=== PATIENT | female | born 1975 | race African-American/Black ===

== ENCOUNTER 2016-11-29 10:32 | Emergency (ER) | payer MEDICAID ==
[~2016-11-29] VITALS: Ht 154.9 cm; Wt 74.8 kg
[~2016-11-29 10:32] MED LIST: CEPHALEXIN500 MG ORAL; CIPRO500 MG PO; CYCLOBENZAPRINE10 MG ORAL; IBUPROFEN600 MG ORAL; NKM; NORCO 5-325 TA1 EACH ORAL; NORCO 5/3251 TAB ORAL; PHENAZOPYRIDIN200 MG ORAL
[2016-11-29] MEDS ORDERED: Tylenol #3 tab (300mg/30mg) PO ONE (11:15)
[2016-11-29] MEDS ORDERED: IBUPROFEN600 MG ORAL (11:44)
[2016-11-29] MEDS ORDERED: ACETAMINOPHEN-1 EAC1 ORAL (11:44)
--- NOTE | 2016-11-29 12:07 | Diagnostic Imaging Report ---
Indication: PAIN Technique: 3 views of the right ankle Comparison: none Findings: No acute fractures. No dislocations. Joint spaces are preserved. Impression: Negative
[2016-11-29 12:25] VITALS: BP 158/100
--- NOTE | 2016-11-29 16:17 | Diagnostic Imaging Report ---
Indication: PAIN Technique: 3 views right foot Comparison: none Findings: There is evidence of prior bunionectomy. No acute fractures. No dislocations. The joint spaces are preserved. Impression: Negative
--- NOTE | 2016-11-30 14:25 | Emergency Room Report ---
History of Present Illness General Chief Complaint: Lower Extremity Injury Source: Patient Present Illness HPI 40-year-old female presents to ED for evaluation. Patient states he had a trip and fall 2 days ago and rolled her right ankle. Patient has pain and swelling to right ankle. 10 out of 10, throbbing, nonradiating. Notes pain but is able to bear weight. Denies any other injuries. No other aggravating relieving factors. Denies any other associated symptom Allergies: Coded Allergies: NITROFURANTOIN (Verified Allergy, Mild, Rash, 10/08/12) NITROFURANTOIN MACROCRYSTAL (Verified Allergy, Mild, Rash, 10/08/12) Patient History Past Medical History: none Past Surgical History: none Pertinent Family History: none Social History: Denies: alcohol use, drug use, smoking Last Menstrual Period: 7- Now: No Immunizations: UTD Reviewed Nursing Documentation: PMH: Agreed, PSxH: Agreed Nursing Documentation-PMH Past Medical History: No History, Except For Review of Systems All Other Systems: negative except mentioned in HPI Physical Exam Vital Signs Date Time Temp Pulse Resp B/P Pulse Ox O2 Delivery O2 Flow Rate FiO2 11/29/16 10:37 97.9 63 18 164/120 98 Room Air Sp02 EP Interpretation: reviewed, normal General Appearance: no apparent distress, alert, GCS 15, non-toxic Head: normocephalic Eyes: bilateral eye PERRL, bilateral eye normal inspection ENT: normal ENT inspection Neck: normal inspection Respiratory: normal inspection Cardiovascular #1: normal inspection Gastrointestinal: normal inspection Rectal: heme negative stool Genitourinary: no CVA tenderness Musculoskeletal: swelling - R ankle Neurologic: alert, oriented x3, responsive, motor strength/tone normal, sensory intact, speech normal Psychiatric: normal inspection Skin: normal inspection Lymphatic: normal inspection Procedures Splinting Splinting : Consent: Verbal Pre-Made Type: ELIZABETH wrap - R ankle Pre-Proc Neuro Vasc Exam: normal Post-Proc Neuro Vasc Exam: normal Patient Tolerated: Well Complications: None Medical Decision Making Diagnostic Impression: Primary Impression: Ankle sprain Qualified Codes: S93.401A - Sprain of unspecified ligament of right ankle, initial encounter ER Course Hospital Course 40-year-old F presents to ED complaining of R foot pain s/p trip and fall Differential diagnoses include: Fracture, dislocation, sprain, contusion Clinical course Patient placed on stretcher. After initial history and physical, I ordered pain medications and Xrays of R foot/ankle Xrays prelim read shows no acute fracture/dislocation. placed in elizabeth wrap, given crutches Diagnosis - ankle sprain Stable and discharged to home with prescription for Motrin. apply ice, keep elevated. weight bear as tolerated. Followup with PMD. Return to ED if symptoms recur or worsen Other X-Ray Diagnostic Results Other X-Ray Diagnostic Results #1: X-Ray ordered: R ankle # of Views/Limited Vs Complete: 3 View Indication: Pain EP Interpretation: Yes Interpretation: no dislocation, no soft tissue swelling, no fractures Impression: No acute disease Interpreting ER Provider: Electronically signed by Cuong Manrique MD Other X-Ray Diagnostic Results #2: X-Ray ordered: R foot # of Views/Limited Vs Complete: 3 View Indication: Pain EP Interpretation: Yes Interpretation: no dislocation, no soft tissue swelling, no fractures Impression: No acute disease Interpreting ER Provider: Electronically signed by Cuong Manrique MD Last Vital Signs Date Time Temp Pulse Resp B/P Pulse Ox O2 Delivery O2 Flow Rate FiO2 11/29/16 12:25 97.9 89 18 158/100 98 Room Air Status: improved Disposition: HOME, SELF-CARE Condition: Stable Scripts Acetaminophen With Codeine (T#3) (TYLENOL #3 TAB*) Y Tab 1 TAB ORAL Q8H Y for For Pain, #20 TAB Prov: CUONG MANRIQUE M.D. 11/29/16 Ibuprofen* (MOTRIN*) 600 Mg Tablet 600 MG ORAL Q8H Y for For Pain, #30 TAB 0 Refills Prov: CUONG MANRIQUE M.D. 11/29/16 Patient Instructions: Ankle Sprain CUNOG MANRIQUE M.D. Nov 30, 2016 14:25
== END 2016-11-29 11:15 | disposition home or self-care (01) ==
LOC: EMR 11:06
DX: S93.401A Sprain of unspecified ligament of right ankle, initial encounter (principal); W01.0XXA Fall on same level from slipping, tripping and stumbling without subsequent striking against object, initial encounter; Y92.89 Other specified places as the place of occurrence of the external cause
CPT/HCPCS: 29540; 99284

== ENCOUNTER 2017-08-09 16:57 | Emergency (ER) | payer MEDICAID ==
[~2017-08-09] VITALS: Ht 154.9 cm; Wt 75.7 kg
[~2017-08-09 16:57] MED LIST changes: +ACETAMINOPHEN-1 EAC1 ORAL
[2017-08-09 17:13] VITALS: BP 108/67
--- NOTE | 2017-08-09 17:26 | Emergency Room Report ---
History of Present Illness General Chief Complaint: Pain Source: Patient Present Illness HPI 41-year-old female presents to the emergency department complaining of 10 / 10 in severity pain radiating down from the left side of the neck shoulder and anterior chest radiating to the left hand with associated intermittent tingling sensations. Patient denies trauma or fall. Patient reports that the pain woke her up yesterday and she also noted some neck stiffness. Patient denies past medical history other than anemia. Patient reports that her mother does have "some type of heart rhythm." Patient states she's taken Motrin at home with no relief. She and states she also tried warm compresses and massage which also did not provide relief. Patient reports pain is exacerbated upon taking a deep breath, palpation and movements of the left arm. She denies midline neck pain, or episodes of similar symptoms in the past. She denies cough, lower extremity edema, skin color changes to the affected extremity, recent travel. Denies loss of sensation or gross motor movements of the extremities, incontinence of bowel or bladder. Denies Palpitations, LOC, AMS, dizziness, Changes in Vision, Sensation, paresthesias, or a sudden severe headache. Allergies: Coded Allergies: NITROFURANTOIN (Verified Allergy, Mild, Rash, 10/08/12) NITROFURANTOIN MACROCRYSTAL (Verified Allergy, Mild, Rash, 10/08/12) Patient History Past Medical History: see triage record Past Surgical History: none Pertinent Family History: none Last Menstrual Period: 08/06/17 Now: No Reviewed Nursing Documentation: PMH: Agreed; PSxH: Agreed Review of Systems All Other Systems: negative except mentioned in HPI Physical Exam Vital Signs Date Time Temp Pulse Resp B/P (MAP) Pulse Ox O2 Delivery O2 Flow Rate FiO2 08/09/17 17:08 98.2 64 17 108/67 96 Room Air 98.2 Sp02 EP Interpretation: reviewed, normal General Appearance: alert, GCS 15, non-toxic, moderate distress Head: normocephalic, atraumatic ENT: hearing grossly normal, normal voice Neck: full range of motion, no bony tend, tender lateral - left sided, other - no midline ttp. Respiratory: lungs clear, normal breath sounds, no respiratory distress, no accessory muscle use, no wheezing, speaking full sentences Cardiovascular #1: regular rate, rhythm, no edema, normal capillary refill, other - ascultated possible irregular rhythm. Cardiovascular #2: 2+ radial (R), 2+ radial (L) Gastrointestinal: non tender Musculoskeletal: back normal, gait/station normal, normal range of motion - with pain, tender - TTP to the left lateral neck, clavicular area, anterior upper left chest, shoulder, left sided posteiror thoracic musculature, and left biceps and forearm. 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 Neurologic: alert, oriented x3, responsive, motor strength/tone normal, sensory intact, speech normal, grossly normal Psychiatric: judgement/insight normal Skin: normal color, no rash, warm/dry, well hydrated Medical Decision Making PA Attestation Dr. Hart is my supervising Physician whom patient management has been discussed with. Diagnostic Impression: Primary Impression: Muscle spasm Additional Impression: Muscle spasm of left shoulder ER Course 41-year-old female presents to the emergency department complaining of 10 / 10 in severity pain radiating down from the left side of the neck shoulder and anterior chest radiating to the left hand with associated intermittent tingling sensations. Patient denies trauma or fall. Patient reports that the pain woke her up yesterday and she also noted some neck stiffness. Patient denies past medical history other than anemia. Patient reports that her mother does have "some type of heart rhythm." Patient states she's taken Motrin at home with no relief. She and states she also tried warm compresses and massage which also did not provide relief. Patient reports pain is exacerbated upon taking a deep breath, palpation and movements of the left arm. She denies midline neck pain, or episodes of similar symptoms in the past. She denies cough, lower extremity edema, skin color changes to the affected extremity, recent travel. Denies loss of sensation or gross motor movements of the extremities, incontinence of bowel or bladder. Denies Palpitations, LOC, AMS, dizziness, Changes in Vision, Sensation, paresthesias, or a sudden severe headache. Ddx considered but are not limited to Fracture, dislocation, contusion, Sprain/ Strain/Spasm, aortic dissection, upper extremity DVT, impingement syndrome just to name a few. Vital signs: are WNL, pt. is afebrile H&PE are most consistent with musculoskeletal injury will perform imaging to r/ o fractures/dislocations. ORDERS: - Bilateral UE BP Measurements for comparison.: Left 126/80, 122/80 - C-Spine: Some cervical straightening no obvious fractures or dislocation. -CXR: no atelectasis, infiltrates or abnormal heart size. suspicious left upper lobe markings , sent to [facility] for Radiologist evaluation. -[id number] NSR ED INTERVENTIONS: - Toradol - [place] PO -- Left arm Sling applied by land survey technician. Pt. remains neurovascularly intact. d/w pt. conservative treatment with Muscle relaxers, anti-inflammatories and rest. Pt instructed to follow up with a primary care provider in 3-5 days. pt given a list of primary care clinics for follow up. d/w pt. to return to the ED with worsening or new symptoms. DISCHARGE: At this time pt. is stable for d/c to home. Will provide printed patient care instructions, and any necessary prescriptions. Care plan and follow up instructions have been discussed with the patient prior to discharge. EKG Diagnostic Results EP Interpretation: Dr. Hart Rate: normal - 67 BPM Rhythm: NSR ST Segments: no acute changes ASA given to the pt in ED: No PA Scribe Text This Interpretation was scribed by CHRYSTAL aVng. Chest X-Ray Diagnostic Results Chest X-Ray Diagnostic Results : Chest X-Ray Ordered: Yes # of Views/Limited/Complete: 1 View Indication: Chest Pain EP Interpretation: Yes PA Xray: Interpretation reviewed, by supervising MD, and agrees with findings. Interpretation: no consolidation, no effusion, no pneumothorax, no acute cardiopulmonary disease, other - suspicious left upper lobe markings , sent to [facility] for Radiologist evaluation Impression: Other - suspicious left upper lobe markings , sent to [facility] for Radiologist evaluation Electronically Signed by: Candie Vang PA-C Other X-Ray Diagnostic Results Other X-Ray Diagnostic Results : X-Ray ordered: C-Spine # of Views/Limited Vs Complete: 3 View Indication: Pain EP Interpretation: Yes PA Xray: Interpretation reviewed, by supervising MD, and agrees with findings. Interpretation: no dislocation, no soft tissue swelling, no fractures Impression: Other - abnormal: mild cervical straightening. Electronically Signed by: Candie Vang PA-C Last Vital Signs Date Time Temp Pulse Resp B/P (MAP) Pulse Ox O2 Delivery O2 Flow Rate FiO2 08/09/17 17:13 98.2 17 108/67 96 Room Air 98.2 08/09/17 17:08 64 Disposition: HOME, SELF-CARE Condition: Stable Scripts Methocarbamol* (ROBAXIN*) 500 Mg Tablet 500 MG PO TID, #42 TAB 0 Refills Prov: Candie Vang 08/09/17 Ibuprofen* (MOTRIN*) 600 Mg Tablet 600 MG ORAL THREE TIMES A DAY, #20 TAB 0 Refills Prov: Candie Vang 08/09/17 Patient Instructions: Muscle Cramps and Spasms, [id number], Muscle Strain, [id number], Shoulder Pain, [id number] Additional Instructions: Take medications as directed. Follow up with a Primary Care Provider in 3-5 days, even if your symptoms have resolved. --Please review list of primary care clinics, if you do not already have a primary care provider Return sooner to ED if new symptoms occur, or current symptoms become worse. Do not drink alcohol, drive, or operate heavy machinery while taking Robaxin as this may cause drowsiness. - Please note that this Emergency Department Report was dictated using [employer]-eeest[employer] preliminary technology software, occasionally this can lead to erroneous entry secondary to interpretation by the dictation equipment. Candie Vang Aug 09, 2017 17:26
[2017-08-09] MEDS ORDERED: Norco 5mg/325mg tab ORAL ONE (17:30)
[2017-08-09 18:17] VITALS: BP_SYST 116; BP_SYST 117; BP_DIAS 69; BP_DIAS 79
[2017-08-09] MEDS ORDERED: Methocarbamol 500mg tab ORAL ONE (18:45)
[2017-08-09] MEDS ORDERED: Methocarbamol 500mg tab ORAL SCH (18:45)
[2017-08-09] MEDS ORDERED: IBUPROFEN600 MG ORAL (18:55)
[2017-08-09] MEDS ORDERED: ROBAXIN500 MG PO (18:55)
[2017-08-09] MEDS ORDERED: Ketorolac 60mg Inj IM ONE (19:00)
[2017-08-09 19:07] VITALS: BP 122/83
--- NOTE | 2017-08-10 10:03 | Diagnostic Imaging Report ---
Indication: Chest pain Technique: One view of the chest Comparison: none Findings: Lungs and pleural spaces are clear. Heart size is normal Impression: No acute process This agrees with the preliminary interpretation provided overnight by [facility] teleradiology service.
--- NOTE | 2017-08-10 10:04 | Diagnostic Imaging Report ---
Indication: Neck pain Technique: 3 views of the cervical spine Comparison: none Findings: There is no prevertebral soft tissue swelling. Bony alignment is normal. Vertebral body heights are preserved. There is degenerative disc narrowing at multiple levels. No acute fractures. No dislocations. Impression: No acute bony trauma
--- NOTE | 2017-08-11 21:25 | Cardiology Report ---
APPROVED REPORT EKG Measurement Heart [id number] Normal sinus rhythm Normal ECG
== END 2017-08-09 19:12 | disposition home or self-care (01) ==
LOC: EMR 17:29
DX: M62.838 Other muscle spasm (principal); M54.2 Cervicalgia; M25.512 Pain in left shoulder; Z88.8 Allergy status to other drugs, medicaments and biological substances
CPT/HCPCS: 71045; 72040; 93005; 96372; 99284

== ENCOUNTER 2017-12-02 17:50 | Emergency (ER) | payer MEDICAID ==
[~2017-12-02] VITALS: Ht 154.9 cm; Wt 77.1 kg
[~2017-12-02 17:50] MED LIST changes: +ROBAXIN500 MG PO
[2017-12-02 18:04] VITALS: BP 129/86
[2017-12-02 18:50] LABS: HEMATOCRIT 40.9 % (37.0-47.0); HEMOGLOBIN 13.4 G/DL (12.0-16.0); MEAN CORPUSCULAR VOLUME 94 FL (80-99); PLATELET COUNT 295 K/UL (150-450); RED BLOOD COUNT 4.37 M/UL (4.20-5.40); RED CELL DISTRIBUTION WIDTH 11.5 % (11.6-14.8); WHITE BLOOD COUNT 5.9 K/UL (4.8-10.8)
[2017-12-02 18:52] LABS: APPEARANCE,URINE CLEAR; BILIRUBIN, URINE 1+ (NEGATIVE); GLUCOSE, URINE (UA) NEGATIVE (NEGATIVE); KETONES,URINE 1+ (NEGATIVE); LEUKOCYTE ESTERASE ,URINE 1+ (NEGATIVE); NITRITE,URINE POSITIVE (NEGATIVE); PH,URINE 5 (4.5-8.0); PROTEIN,URINE 3+ (NEGATIVE); UROBILINOGEN,URINE 1 MG/DL (NORMAL)
[2017-12-02 18:55] LABS: COLOR,URINE YELLOW
[2017-12-02 19:03] LABS: ALANINE AMINOTRANSFERASE 19 U/L (12-78); ALBUMIN 3.6 G/DL (3.4-5.0); ALBUMIN/GLOBULIN RATIO 0.7 (1.0-2.7); ALKALINE PHOSPHATASE 59 U/L (46-116); ANION GAP 13 mmol/L (5-15); ASPARTATE AMINO TRANSFERASE 23 U/L (15-37); BILIRUBIN,TOTAL 0.3 MG/DL (0.2-1.0); BLOOD UREA NITROGEN 9 mg/dL (7-18); CALCIUM 9.1 MG/DL (8.5-10.1); CARBON DIOXIDE 23 MMOL/L (21-32); CHLORIDE 104 MMOL/L (98-107); CREATININE 1.2 MG/DL (0.55-1.30); SODIUM 140 MMOL/L (136-145)
[2017-12-02 19:05] LABS: POTASSIUM 2.6 MMOL/L (3.5-5.1)
[2017-12-02] MEDS ORDERED: cefTRIAXone 1 GM in NS 55 ML IVPB ONE (19:15)
[2017-12-02] MEDS ORDERED: ZOFRAN4 MG ORAL (19:28)
[2017-12-02] MEDS ORDERED: CIPROFLOXACIN500 M2 ORAL (19:28)
--- NOTE | 2017-12-02 19:38 | Emergency Room Report ---
History of Present Illness General Chief Complaint: Nausea, Vomiting, and Diarrhea Source: Patient Present Illness HPI Patient presents emergency department today complaining of 3-4 days of nausea vomiting diarrhea and abdominal discomfort. Patient states her diarrhea is improving but she denied burrito drink anything. She states that she feels very nauseous finally came here further evaluation. She denies any definite dysuria or vaginal discharge denies any rectal bleeding symptoms noted to be moderate to severe.No other modifying factors. No other associated signs and symptoms. No other complaints were noted. Allergies: Coded Allergies: NITROFURANTOIN (Verified Allergy, Mild, Rash, 10/08/12) NITROFURANTOIN MACROCRYSTAL (Verified Allergy, Mild, Rash, 10/08/12) Patient History Past Medical History: none Past Surgical History: none Pertinent Family History: none Social History: Denies: smoking, alcohol use, drug use Last Menstrual Period: 11/28/17 Reviewed Nursing Documentation: PMH: Agreed; PSxH: Agreed Nursing Documentation-PMH Past Medical History: No History, Except For Review of Systems All Other Systems: negative except mentioned in HPI Physical Exam Vital Signs Date Time Temp Pulse Resp B/P (MAP) Pulse Ox O2 Delivery O2 Flow Rate FiO2 12/02/17 17:53 98.4 80 18 129/86 99 Room Air 98.4 Sp02 EP Interpretation: reviewed, normal General Appearance: normal inspection, well appearing, no apparent distress, alert Head: atraumatic Eyes: bilateral eye normal inspection ENT: normal ENT inspection, hearing grossly normal, normal voice Neck: normal inspection, full range of motion, supple, no bony tend Respiratory: normal inspection, lungs clear, normal breath sounds, no respiratory distress, no retraction, no wheezing Cardiovascular #1: regular rate, rhythm, no edema Gastrointestinal: normal inspection, normal bowel sounds, non tender, soft, no guarding, no hernia Genitourinary: no CVA tenderness Musculoskeletal: normal inspection, back normal, normal range of motion Neurologic: normal inspection, alert, responsive, speech normal Psychiatric: normal inspection, judgement/insight normal, mood/affect normal Skin: normal inspection, normal color, no rash Medical Decision Making Diagnostic Impression: Primary Impression: Hypokalemia Additional Impressions: Nausea, vomiting, and diarrhea UTI (urinary tract infection) ER Course Patient presents emergency department today generalized weakness nausea vomiting diarrhea. Differential diagnoses include a Lexxel abnormality, gastritis, UTI just name a few.Given the severity of the patient's presentation I felt this is a highly complex patient. This patient required extensive workup. Patient laboratory workup was not impressive except for evidence of hypokalemia patient was given potassium. Patient was also given fluids fracture aeration. Patient's urine testing showed evidence UTI patient was given one dose of Rocephin and started on a prescription for Cipro. Patient was also given prescription for Zofran. Patient states that she feels much better after treatment. Recommend close outpatient follow-up. I feel the patient's hypokalemia was likely secondary to the diarrhea and vomiting.Patient is advised to follow up with primary doctor in 2-3 days and return the emergency room for any worsening symptoms and as needed. Labs Test 12/02/17 18:20 White Blood Count 5.9 K/UL (4.8-10.8) Red Blood Count 4.37 M/UL (4.20-5.40) Hemoglobin 13.4 G/DL (12.0-16.0) Hematocrit 40.9 % (37.0-47.0) Mean Corpuscular Volume 94 FL (80-99) Mean Corpuscular Hemoglobin 30.7 PG (27.0-31.0) Mean Corpuscular Hemoglobin Concent 32.7 G/DL (32.0-36.0) Red Cell Distribution Width 11.5 % (11.6-14.8) Platelet Count 295 K/UL (150-450) Mean Platelet Volume 7.2 FL (6.5-10.1) Neutrophils (%) (Auto) % (45.0-75.0) Lymphocytes (%) (Auto) % (20.0-45.0) Monocytes (%) (Auto) % (1.0-10.0) Eosinophils (%) (Auto) % (0.0-3.0) Basophils (%) (Auto) % (0.0-2.0) Urine Color Yellow Urine Appearance Clear Urine pH 5 (4.5-8.0) Urine Specific [place] 1.025 (1.005-1.035) Urine Protein 3+ (NEGATIVE) Urine Glucose (UA) Negative (NEGATIVE) Urine Ketones 1+ (NEGATIVE) Urine Occult Blood 5+ (NEGATIVE) Urine Nitrite Positive (NEGATIVE) Urine Bilirubin 1+ (NEGATIVE) Urine Ictotest Negative (NEGATIVE) Urine Urobilinogen 1 MG/DL (NORMAL) Urine Leukocyte Esterase 1+ (NEGATIVE) Urine RBC 10-15 /HPF (0 - 2) Urine WBC 5-10 /HPF (0 - 2) Urine Squamous Epithelial Cells Few /LPF (NONE/OCC) Urine Calcium Oxalate Crystals Few /LPF (NONE) Urine Amorphous Sediment Few /LPF (NONE) Urine Bacteria Moderate /HPF (NONE) Urine Fine Granular Casts 2-4 /LPF (NONE) Urine HCG, Qualitative Negative (NEGATIVE) Sodium Level 140 MMOL/L (136-145) Potassium Level 2.6 MMOL/L (3.5-5.1) Chloride Level 104 MMOL/L (98-107) Carbon Dioxide Level 23 MMOL/L (21-32) Anion Gap 13 mmol/L (5-15) Blood Urea Nitrogen 9 mg/dL (7-18) Creatinine 1.2 MG/DL (0.55-1.30) Estimat Glomerular Filtration Rate 59.4 mL/min (>60) Glucose Level 105 MG/DL (74-106) Calcium Level 9.1 MG/DL (8.5-10.1) Total Bilirubin 0.3 MG/DL (0.2-1.0) Aspartate Amino Transf (AST/SGOT) 23 U/L (15-37) Alanine Aminotransferase (ALT/SGPT) 19 U/L (12-78) Alkaline Phosphatase 59 U/L (46-116) Total Protein 8.5 G/DL (6.4-8.2) Albumin 3.6 G/DL (3.4-5.0) Globulin 4.9 g/dL Albumin/Globulin Ratio 0.7 (1.0-2.7) Lipase 86 U/L (73-393) Last Vital Signs Date Time Temp Pulse Resp B/P (MAP) Pulse Ox O2 Delivery O2 Flow Rate FiO2 12/02/17 18:04 98.4 74 18 129/86 99 Room Air 98.4 Status: improved Disposition: HOME, SELF-CARE Condition: Stable Scripts Ondansetron (Zofran) 4 Mg Tablet 4 MG ORAL Q6H PRN for Nausea & Vomiting, #6 TAB 0 Refills Prov: Tr South MD 12/02/17 Ciprofloxacin Hcl* (CIPROFLOXACIN HCL*) 500 Mg Tablet 500 MG ORAL Q12H, #14 TAB 0 Refills Prov: Tr South MD 12/02/17 Patient Instructions: Hypokalemia, Viral Gastroenteritis, Adult, [id number], Urinary Tract Infection Tr South MD Dec 02, 2017 19:38
[2017-12-02 20:20] VITALS: BP 129/86
== END 2017-12-02 20:20 | disposition home or self-care (01) ==
LOC: EMR 18:25
DX: E87.6 Hypokalemia (principal); N39.0 Urinary tract infection, site not specified; R11.2 Nausea with vomiting, unspecified; R19.7 Diarrhea, unspecified
CPT/HCPCS: 36415; 80053; 81003; 81025; 83690; 85007; 85025; 87086; 87181; 99284; J0696; J2405; J8499

== ENCOUNTER 2020-02-27 19:47 | Emergency (ER) | payer MEDICAID ==
[~2020-02-27] VITALS: Ht 154.9 cm; Wt 77.1 kg
[~2020-02-27 19:47] MED LIST changes: +CIPROFLOXACIN500 M2 ORAL; +LIDODERM700 M1 TOPIC; +ZOFRAN4 MG ORAL
--- NOTE | 2020-02-27 19:58 | NUR ---
ED Nurse Note: pt presents to ED c/o R sided sore throat and R ear ache x4 days. pt states that she has been taking ibuprofen at home but the pain returns after a couple hours. pt reports going to the dentist yesterday to be evaluated for a dental source of pain but that "they didn't find anything wrong" there. pt denies fevers or chills at this time
[2020-02-27 19:59] VITALS: BP 121/73
--- NOTE | 2020-02-27 20:10 | Emergency Room Report ---
History of Present Illness General Chief Complaint: Sore Throat Present Illness HPI 44-year-old female with no no signal past medical history here complaining of 2 days of right ear pain rating it 7 out of 10 with now radiating to right side of throat. Patient reports that she thought it was coming from her throat and went to the dentist earlier today and was told that her teeth are fine. Denies any fever and chills, headache and dizziness. Denies any vertigo, tinnitus, hearing loss. Denies any pus drainage from the ear. Obvious anterior cervical lymp hadenopathy noted. Patient denies any neck stiffness, fever and chills, photophobia, headache. Has not taken medication for symptom relief. Denies any diarrhea, loss of taste and smell. Denies Allergies: Coded Allergies: NITROFURANTOIN (Verified Allergy, Mild, Rash, 10/08/12) NITROFURANTOIN MACROCRYSTAL (Verified Allergy, Mild, Rash, 10/08/12) COVID-19 Screening Contact w/high risk pt: No Experienced COVID-19 symptoms?: No COVID-19 Testing performed NEWSPAPER ILLUSTRATOR: No Patient History Past Medical History: see triage record Past Surgical History: none Pertinent Family History: none Now: No Immunizations: UTD Reviewed Nursing Documentation: PMH: Agreed; PSxH: Agreed Review of Systems All Other Systems: negative except mentioned in HPI Physical Exam Vital Signs Date Time Temp Pulse Resp B/P (MAP) Pulse Ox O2 Delivery O2 Flow Rate FiO2 02/27/20 19:52 98.2 76 18 121/73 (89) 95 Room Air Sp02 EP Interpretation: reviewed, normal General Appearance: no apparent distress, alert, GCS 15, non-toxic Head: normocephalic, atraumatic Eyes: bilateral eye normal inspection, bilateral eye PERRL ENT: pharyngeal erythema, other - Erythema right ear canal Neck: full range of motion, no meningismus, no bony tend, other - Right-sided lymphadenopathy Respiratory: chest non-tender, lungs clear, normal breath sounds, speaking full sentences Cardiovascular #1: regular rate, rhythm, no edema, no murmur Cardiovascular #2: 2+ carotid (R), 2+ carotid (L), 2+ radial (R), 2+ radial (L), 2+ dorsalis pedis (R), 2+ dorsalis pedis (L) Gastrointestinal: soft Rectal: deferred Musculoskeletal: back normal, other - No mastoid tenderness noted. No meningismus noted Neurologic: alert, motor strength/tone normal, oriented x3, sensory intact, responsive, speech normal Psychiatric: judgement/insight normal, memory normal, mood/affect normal, no suicidal/homicidal ideation Skin: no rash Lymphatic: adenopathy - Right-sided anterior cervical lymphadenopathy Medical Decision Making PA Attestation All diagnoses and treatment plans were reviewed and discussed with my supervising physician Dr. Nettles Diagnostic Impression: Primary Impression: Otitis media Additional Impression: Lymphedema ER Course 44-year-old female with no no signal past medical history here complaining of 2 days of right ear pain rating it 7 out of 10 with now radiating to right side of throat. Patient reports that she thought it was coming from her throat and went to the dentist earlier today and was told that her teeth are fine. Denies any fever and chills, headache and dizziness. Denies any vertigo, tinnitus, hearing loss. Denies any pus drainage from the ear. Obvious anterior cervical lymphadenopathy noted. Patient denies any neck stiffness, fever and chills, photophobia, headache. Has not taken medication for symptom relief. Denies any diarrhea, loss of taste and smell. Denies Ddx considered but are not limited to: Otitis media, otitis externa, mastoiditis, strep pharyngitis, URI, tonsillitis, peritonsillar abscess, influneza, barrios virus Vital signs: are WNL, pt. is afebrile H&PE are most consistent with: Otitis media, lymphedema ORDERS: Augmentin, prednisone, ibuprofen ED INTERVENTIONS: None required at this time. DISCHARGE: At this time pt. is stable for d/c to home. Will provide printed patient care instructions, and any necessary prescriptions. Care plan and follow up instructions have been discussed with the patient prior to discharge. Take medication as directed, follow-up with your primary care provider and ENT, if worsening symptoms return to the emergency room Last Vital Signs Date Time Temp Pulse Resp B/P (MAP) Pulse Ox O2 Delivery O2 Flow Rate FiO2 02/27/20 19:59 98.2 86 18 121/73 95 Room Air Disposition: HOME, SELF-CARE Condition: Stable Referrals: [facility],REFERRING (PCP) Patient Instructions: Lymphedema, Otitis Media, Adult Additional Instructions: Take medication as directed, follow-up with primary care provider and ENT, if worsening symptoms return to the emergency room Aamir Skinner Feb 27, 2020 20:10
[2020-02-27] MEDS ORDERED: IBU800 MG PO (20:11)
[2020-02-27] MEDS ORDERED: PREDNISONE20 MG ORAL (20:11)
[2020-02-27] MEDS ORDERED: AUGMENTIN 875-1 EAC1 ORAL (20:11)
[2020-02-27 20:15] VITALS: BP 121/73
--- NOTE | 2020-02-27 20:15 | NUR ---
ER DISCHARGE NOTE: Patient is cleared to be discharged per ERMD, pt is aox4, on room air, with stable vital signs. pt was given dc and prescription instructions, pt was able to verbalize understanding, pt id band and removed without complications. pt is able to ambulate with steady gait. pt took all belongings.
== END 2020-02-27 20:15 | disposition home or self-care (01) ==
LOC: EMR 20:01
DX: H66.91 Otitis media, unspecified, right ear (principal); I89.0 Lymphedema, not elsewhere classified
CPT/HCPCS: 99282